=== PATIENT | female | born 1985 | race Caucasian/White ===

== ENCOUNTER 2017-01-01 19:36 | Emergency (ER) | payer OTHER ==
[~2017-01-01] VITALS: Ht 180.3 cm; Wt 92.0 kg
[2017-01-01 19:40] VITALS: BP 144/99; PULSE 113; RESP 16; TEMP 98.1; O2SAT 100
[2017-01-01] MEDS ORDERED: HYDROmorphone HCL PF 1 MG/ML VIAL IM ONE (20:00)
[2017-01-01] MEDS ORDERED: ONDANSETRON HCL 4 MG/2 ML VIAL IM ONE (20:00)
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
[2017-01-01] MEDS ORDERED: IBUP-232 PO (20:57)
[2017-01-01] MEDS ORDERED: HYDR-3533 PO (20:57)
== END 2017-01-01 21:26 | disposition home or self-care (01) ==
LOC: NEPD 19:36
DX: S49.91XA Unspecified injury of right shoulder and upper arm, initial encounter (principal); S40.011A Contusion of right shoulder, initial encounter; V86.59XA Driver of other special all-terrain or other off-road motor vehicle injured in nontraffic accident, initial encounter; Y93.9 Activity, unspecified; Y92.9 Unspecified place or not applicable; Y99.9 Unspecified external cause status
CPT/HCPCS: 73030; 96372; 99283; J1170; J2405

== ENCOUNTER 2017-08-06 12:26 | Emergency (ER) | payer OTHER ==
[~2017-08-06] VITALS: Ht 188 cm; Wt 87.0 kg
[~2017-08-06 12:26] MED LIST: CYCL10TA PO; IBUP-232 PO
[2017-08-06 12:27] VITALS: BP 160/72; PULSE 112; RESP 18; TEMP 98.7; O2SAT 99
[2017-08-06] MEDS ORDERED: NAPROXEN 500 MG TAB PO ONE (13:00)
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
[2017-08-06] MEDS ORDERED: NAPR500T2 PO (14:06)
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
[2017-08-06 15:18] VITALS: BP 136/88; PULSE 71; RESP 17; O2SAT 100
== END 2017-08-06 15:49 | disposition home or self-care (01) ==
LOC: NEPD 12:26
DX: S93.601A Unspecified sprain of right foot, initial encounter (principal); M20.11 Hallux valgus (acquired), right foot; W22.8XXA Striking against or struck by other objects, initial encounter
CPT/HCPCS: 73630; 99283; E0113